=== PATIENT | male | born 1990 | race African-American/Black ===

== ENCOUNTER 2020-02-27 10:22 | Inpatient (IN) | payer SELFPAY ==
--- OUTSIDE RECORDS SUMMARY | 2020-02-27 10:26 | XMS ---
:1990 Author Organization [facility] Care Team Providers Name Role Phone YURI LYMAN MD, MD Unavailable Unavailable Kj Albright MD Unavailable Unavailable Kj Albright MD Unavailable Unavailable Kj Albright MD Unavailable Unavailable Kj Albright MD Unavailable Unavailable Kj Albright MD Unavailable Unavailable U , PROVIDER S MD Unavailable Unavailable Re-disclosure Warning The records that you are about to access may contain information from federally- assisted alcohol or drug abuse programs. If such information is present, then the following federally mandated warning applies: This information has been disclosed to you from records protected by federal confidentiality rules (42 CFR part 2). The federal rules prohibit you from making any further disclosure of this information unless further disclosure is expressly permitted by the written consent of the person to whom it pertains or as otherwise permitted by 42 CFR part 2. A general authorization for the release of medical or other information is NOT sufficient for this purpose. The Federal rules restrict any use of the information to criminally investigate or prosecute any alcohol or drug abuse patient.The records that you are about to access may contain highly sensitive health information, the redisclosure of which is protected by Article 27-F of the [facility] Public Health law. If you continue you may haveaccess to information: Regarding HIV / AIDS; Provided by facilities licensed or operated by the [facility] Office of Mental Health; or Provided by the [facility] Office for People With Developmental Disabilities. If such information is present, then the following [facility] mandated warning applies: This information has been disclosed to you from confidential records which are protected by state law. State law prohibits you from making any further disclosure of this information without the specific written consent of the person to whom it pertains, or as otherwise permitted by law. Any unauthorized further disclosure in violation of state law may result in a fine or half-way sentence or both. A general authorization for the release of medical or other information is NOT sufficient authorization for further disclosure. Allergies and Adverse Reactions Type Description Substance Reaction Status Data Source(s ) Drug allergy No Known Allergies No Known Allergies [facility] Encounters Encounter Providers Location Date Indications Data Source(s ) Emergency Attender: YURI 02/26/2020 DETOX [facility]ER GALLEGOS 07:03:00 AM EDT [facility] - 02/26/2020 08:25:00 AM EDT DETOX Patient discharged. P Attender: Kj Albright 02/25/2020 05:02:[address] [facility] MDAttender: BERTRAND Castillo MD EDT - 02/25/2020 09:3 0:00 [facility] PM EDT DETOX Patient discharged. Insurance Providers Payer name Policy type Policy ID Covered Covered green party's Policy P devyn / Coverage green party ID relationship to Mart Inf ormation type mart SELF PAY SP INSURANCE [facility] [id number] [place] Problems, Conditions, and Diagnoses Code Display Name Description Problem Type Effective Data Sour ce(s) Dates F11.10 Opioid abuse, [facility]IOID ABUSE, [facility] EDT [facility]
--- NOTE | 2020-02-27 13:43 | BHS.RME ---
Substance Use & Tx History - Substance Use History Heroin Substance amount: 30 40 bags Frequency of use: Daily Substance route: Inhalation (ex: sniffing or snorting) Date of Last Use: 02/25/20 - Last Treatment Date of last treatment: 1st time Physical/Psych/Mental Status - Behavior General Behavior: Increased activity (restlessness, agitation) Eye Contact: Normal Other Behaviors: Mannerisms - Cooperativeness Cooperativeness: Cooperative - Thinking Thought Processes: Tight Thought content: Future oriented - Physical Health Problems Is patient presently having any pain?: Yes Does patient presently have any injuries (include location): No Does patient currently have a fever: No COWS - Scale Resting Pulse: 0= [place] 80 or Below Sweatin=Flushed/Facial Moisture Restless Observation: 3= Extraneous Movement Pupil Size: 1= Pupils >than Normal Bone or Joint Aches: 1= Mild Discomfort Runny Nose/ Eye Tearin= Runny Nose/Eyes GI Upset > 30mins: 2= Nausea/Diarrhea Tremor Observation: 2= Slight Tremor Visible Yawning Observation: 1= 1-2x During Session Anxiety or Irritability: 1=Feels Anxious/Irritable Goose Flesh Skin: 3=Piloerection COWS Score: 18
--- NOTE | 2020-02-27 14:01 | HP ---
COWS - Scale Resting Pulse: 0= [place] 80 or Below Sweatin=Flushed/Facial Moisture Restless Observation: 3= Extraneous Movement Pupil Size: 1= Pupils >than Normal Bone or Joint Aches: 1= Mild Discomfort Runny Nose/ Eye Tearin= Runny Nose/Eyes GI Upset > 30mins: 2= Nausea/Diarrhea Tremor Observation: 2= Slight Tremor Visible Yawning Observation: 1= 1-2x During Session Anxiety or Irritability: 1=Feels Anxious/Irritable Goose Flesh Skin: 3=Piloerection COWS Score: 18 CIWA Score - Admission Criteria OASAS Guidelines: Admission for Medically Managed Detox: Requires at least one of the followin. CIWA greater than 12 2. Seizures within the past 24 hours 3. Delirium tremens within the past 24 hours 4. Hallucinations within the past 24 hours 5. Acute intervention needed for co occurring medical disorder 6. Acute intervention needed for co occurring psychiatric disorder 7. Severe withdrawal that cannot be handled at a lower level of care (continued vomiting, continued diarrhea, abnormal vital signs) requiring intravenous medication and/or fluids 8. Admission [facility] Chief Complaint: I am sick Allergies/Adverse Reactions: Allergies Allergy/AdvReac Type Severity Reaction Status Date / Time No Known Allergies Allergy Verified 02/27/20 14:17 History of Present Illness: 29 years old man with heroin use presents for detox. He reports 30 - 40 bag use, has not used since . He reports going to [facility] yesterday but he was not admitted due to lack of beds, he was given allergy medicine for his runny nose. He denies h/o overdose Exam Limitations: No Limitations - Ebola screening Have you traveled outside of the country in the last 21 days: No Have you had contact with anyone from an Ebola affected area: No Have you been sick,other than usual withdrawal symptoms: No Do you have a fever: No - Review of Systems Constitutional: Chills, Loss of Appetite, Changes in sleep EENT: reports: Blurred Vision, Nose Congestion Respiratory: reports: No Symptoms reported Cardiac: reports: No Symptoms Reported GI: reports: Diarrhea, Nausea, Poor Appetite, Poor Fluid Intake, Vomiting, Abdominal cramping : reports: No Symptoms Reported Musculoskeletal: reports: Back Pain, Muscle Pain, Muscle Weakness Integumentary: reports: Flushing, Sweating Neuro: reports: Numbness, Tremors Endocrine: reports: No Symptoms Reported Hematology: reports: No Symptoms Reported Psychiatric: reports: No Sypmtoms Reported Other Systems: Reviewed and Negative Patient History - Patient Medical History Hx Anemia: No Hx Asthma: Yes Hx Chronic Obstructive Pulmonary Disease (COPD): No Hx Cancer: No Hx Cardiac Disorders: No Hx Congestive Heart Failure: No Hx Hypertension: No Hx Hypercholesterolemia: No Hx Pacemaker: No HX Cerebrovascular Accident: No Hx Seizures: No Hx Dementia: No Hx Diabetes: No Hx Gastrointestinal Disorders: No Hx Liver Disease: No Hx Genitourinary Disorders: No Hx Sexually Transmitted Disorders: No Hx Renal Disease (ESRD): No Hx Thyroid Disease: No Hx Human Immunodeficiency Virus (HIV): No Hx Hepatitis C: No Hx Depression: No Hx Suicide Attempt: No Hx Bipolar Disorder: No Hx Schizophrenia: No - Patient Surgical History Past Surgical History: Yes Hx Orthopedic Surgery: Yes (left hip arthroscopy x 2) Hx Hysterectomy: No Anesthesia Reaction: No - PPD History Previous Implant?: Yes Documented Results: Negative w/o proof Implanted On Prior R Admission?: No PPD to be Administered?: Yes - Smoking Cessation Smoking history: Current every day smoker Have you smoked in the past 12 months: Yes Aproximately how many cigarettes per day: 20 Hx Chewing Tobacco Use: No Initiated information on smoking cessation: Yes 'Breaking Loose' booklet given: 02/27/20 - Substance & Tx. History Hx Alcohol Use: No Hx Substance Use: Yes Substance Use Type: Heroin Hx Substance Use Treatment: No - Substances abused Heroin Substance route: Inhalation Frequency: Daily Amount used: 30-40 Age of first use: 24 Date of last use: 02/25/20 Admission Physical Exam [facility] - Physical General Appearance: Yes: Mild Distress, Tremorous, Sweating, Anxious HEENTM: Yes: Hearing grossly Normal, Normocephalic, Normal Voice, Pharynx Normal Respiratory: Yes: Chest Non-Tender, Lungs Clear, Normal Breath Sounds, No Respiratory Distress, No Accessory Muscle Use Neck: Yes: No masses,lesions,Nodules, Supple Breast: Yes: Breast Exam Deferred Cardiology: Yes: Regular Rhythm, Regular Rate, S1, S2 Abdominal: Yes: Normal Bowel Sounds, Non Tender, Soft Genitourinary: Yes: Within Normal Limits Back: Yes: Normal Inspection Musculoskeletal: Yes: full range of Motion, Gait Steady, Pelvis Stable, Muscle weakness Extremities: Yes: Tremors Neurological: Yes: glue maker II-XII NML intact, Fully Oriented, Alert, Normal Mood/Affect, Normal Response Integumentary: Yes: Normal Color, Clammy Lymphatic: Yes: Within Normal Limits - Diagnostic (1) Opioid dependence with withdrawal Current Visit: Yes Status: Acute (2) Asthma Current Visit: Yes Status: Acute Qualifiers: Asthma severity: mild Asthma persistence: intermittent Cleared for Admission [facility] - Detox or Rehab [facility] Level of Care: Medically Managed Detox Regimen/Protocol: Methadone Claeared for Rehab Admission: No Breathalyzer - Breathalyzer Breathalyzer: 0 Urine Drug Screen - Test Device Lot number: [id number] Expiration date: 09/15/21 - Control Is test valid?: Yes - Results Drug screen NEGATIVE: No Urine drug screen results: FEN-Fentanyl, MOP-Opiates Inpatient Rehab Admission - Rehab Decision to Admit Inpatient rehab admission?: No
--- OUTSIDE RECORDS SUMMARY | 2020-02-27 14:15 | XMS ---
:1990 Author Organization [facility] Care Team Providers Name Role Phone YURI [...] is protected by Article 27-F of the [facility] Public Health law. If you continue you may haveaccess to information: Regarding HIV / AIDS; Provided by facilities licensed or operated by the [facility] Office of Mental Health; or Provided by the [facility] Office for People With Developmental Disabilities. If such information is present, then the following [facility] mandated warning applies: This information has been [...] law may result in a fine or alf sentence or both. A general authorization for the release of medical or other information is NOT sufficient authorization for further disclosure. Allergies and Adverse Reactions Type Description Substance Reaction Status Data Source(s ) Drug allergy No Known Allergies No Known Allergies [facility] Encounters Encounter Providers Location Date Indications Data Source(s ) Emergency Attender: YURI 02/26/2020 DETOX [facility]ALLEGOS 07:03:00 AM EDT [facility] - 02/26/2020 08:25:00 AM EDT DETOX Patient discharged. P Attender: Kj Albright 02/25/2020 05:02:00 PM DETOX [facility] MDAttender: BERTRAND Castillo MD EDT - 02/25/2020 09:3 0:00 [facility] PM EDT DETOX Patient discharged. Insurance Providers Payer name Policy type Policy ID Covered Covered libertarian's Policy P devyn / Coverage libertarian ID relationship to [employer] Inf ormation type mart SELF PAY SP INSURANCE [facility] [id number] [place] Problems, Conditions, and Diagnoses Code Display Name Description Problem Type Effective Data Sour ce(s) Dates F11.10 Opioid abuse, OPIOID ABUSE, Diagnosis [facility] UNCOMPLICATED 05:02:00 PM Regiona EDT [facility]
[2020-02-27] MEDS ORDERED: NICOTINE POLACRILEX 2 MG GUM BUC PRN (14:19)
[2020-02-27] MEDS ORDERED: MENTHOL/PHENOL 1 EACH UD MM PRN (14:19)
[2020-02-27] MEDS ORDERED: MAGNESIUM CITRATE 300 ML BOTTLE PO PRN (14:19)
[2020-02-27] MEDS ORDERED: NALOXONE HCL 0.4 MG/ML VIAL IM PRN (14:19)
[2020-02-27] MEDS ORDERED: MAGNESIUM HYDROX 2400MG/30ML ORAL SUSPENSION 30 ML CUP PO PRN (14:19)
[2020-02-27] MEDS ORDERED: BISMUTH SUBSALICYLATE 524 MG/30 ML UD PO PRN (14:19)
[2020-02-27] MEDS ORDERED: IBUPROFEN 400 MG TABLET (FP) PO PRN (14:19)
[2020-02-27] MEDS ORDERED: MAG HYDROX/AL HYDROX/SIMETH 30 ML UNIT-DOSE CUP PO PRN (14:19)
[2020-02-27] MEDS ORDERED: ACETAMINOPHEN 325 MG TABLET (FP) PO PRN ×2 (14:19)
[2020-02-27] MEDS ORDERED: METHOCARBAMOL 500 MG TABLET PO PRN (14:19)
[2020-02-27] MEDS ORDERED: METHADONE HCL 10 MG TABLET (FOR DETOX USE ONLY) PO ONE (14:19)
[2020-02-27] MEDS: NICOTINE 14 MG/24 HOURS TOPICAL PATCH TD SCH (15:43)
[2020-02-27] MEDS: cloNIDine HCL 0.1 MG TABLET PO PRN (22:46)
[2020-02-27] MEDS: MELATONIN 5 MG TABLETS PO SCH (22:46)
[2020-02-27] MEDS: THIAMINE HCL 100 MG TABLET (FP) PO SCH (22:46)
[2020-02-28] MEDS ORDERED: METHADONE HCL 5 MG TABLET (FOR DETOX USE ONLY) ONE (08:39)
[2020-02-28] MEDS ORDERED: METHADONE HCL 10 MG TABLET (FOR DETOX USE ONLY) ONE (08:39)
[2020-02-28] MEDS: P-EPHED 60MG/TRIPROLIDI 2.5MG TABLET PO PRN (09:19)
--- NOTE | 2020-02-28 09:34 | EKG ---
Test Reason : Blood Pressure : / mmHG Vent. Rate : 056 BPM Atrial Rate : 056 BPM P-R Int : 162 ms QRS Dur : 090 ms QT Int : 474 ms P-R-T Axes : 001 025 022 degrees QTc Int : 457 ms SINUS BRADYCARDIA WITH SINUS ARRHYTHMIA OTHERWISE NORMAL ECG NO PREVIOUS ECGS AVAILABLE Confirmed by Jagruti Loo ([id number]) on 02/28/2020 9:34:06 AM Referred By: Confirmed By:Jagruti Loo
[2020-02-28] MEDS ORDERED: METHADONE (DETOX) 20 MG, METHADONE (DETOX) 5 MG PO ONE (10:00)
[2020-02-28] MEDS: NICOTINE 14 MG/24 HOURS TOPICAL PATCH TD SCH (10:37)
[2020-02-28] MEDS: PRENATAL VITAMINS W/ FOLIC ACID TABLET (FP) PO SCH (10:39)
[2020-02-28 11:25] LABS: POTASSIUM 3.7 mmol/L (3.5-5.1)
[2020-02-28 11:29] LABS: ALBUMIN 3.8 g/dl (3.4-5.0); BILIRUBIN,TOTAL 0.4 mg/dL (0.2-1); BLOOD UREA NITROGEN 16.4 mg/dL (7-18); CALCIUM 9.1 mg/dL (8.5-10.1); CREATININE 0.7 mg/dL (0.55-1.3); TOT PROT 6.7 g/dl (6.4-8.2)
[2020-02-28 11:47] LABS: HEMATOCRIT 38.1 % (35.4-49); HEMOGLOBIN 12.6 GM/dL (11.7-16.9); MCH 26.8 pg (25.7-33.7); MCHC 33.1 g/dl (32.0-35.9); MEAN PLT VOLUME 10.4 fl (7.5-11.1); PLATELET COUNT 167 K/MM3 (134-434); RDW 14.4 % (11.9-15.9); WHITE BLOOD COUNT 3.9 K/mm3 (4.0-10.0)
--- NOTE | 2020-02-28 17:32 | PN ---
BHS COWS - Scale Resting Pulse: 0= [place] 80 or Below Sweatin= Chills/Flushing Restless Observation: 3= Extraneous Movement Pupil Size: 0= Normal to Room Light Bone or Joint Aches: 2= Severe Diffuse Aches Runny Nose/ Eye Tearin= Runny Nose/Eyes GI Upset > 30mins: 2= Nausea/Diarrhea Tremor Observation of Outstretched Hands: 0= None Yawning Observation: 0= None Anxiety or Irritability: 2=Irritable/Anxious Goose Flesh Skin: 0=Smooth Skin COWS Score: 12 BHS Progress Note (SOAP) Subjective: Chills, anxiety Objective: 02/28/20 17:31 Last Vital Signs Temp Pulse Resp BP Pulse Ox 97.1 F L 48 L 16 120/60 100 02/28/20 12:39 02/28/20 12:39 02/28/20 12:39 02/28/20 12:39 02/28/20 09:06 Bradycardia noted: asymptomatic, encouraged increase PO water and ambulation Laboratory Tests 02/27/20 02/28/20 02/28/20 19:51 07:30 07:30 WBC 3.9 L RBC 4.70 Hgb 12.6 Hct 38.1 MCV 81.0 MCH 26.8 MCHC 33.1 RDW 14.4 Plt Count 167 MPV 10.4 Sodium Potassium Chloride Carbon Dioxide Anion Gap BUN Creatinine Est GFR (CKD-EPI)AfAm Est GFR (CKD-EPI)NonAf Random Glucose Calcium Total Bilirubin AST ALT Alkaline Phosphatase Total Protein Albumin Syphilis Serology Non-reactive COVID-19 (YAMILEX) Not detected 02/28/20 07:30 WBC RBC Hgb Hct MCV MCH MCHC RDW Plt Count MPV Sodium 143 Potassium 3.7 Chloride 110 H Carbon Dioxide 29 Anion Gap 4 L BUN 16.4 Creatinine 0.7 Est GFR (CKD-EPI)AfAm 148.85 Est GFR (CKD-EPI)NonAf 128.43 Random Glucose 96 Calcium 9.1 Total Bilirubin 0.4 AST 12 L ALT 17 Alkaline Phosphatase 58 Total Protein 6.7 Albumin 3.8 Syphilis Serology COVID-19 (YAMILEX) Labs reviewed Assessment: 02/28/20 17:32 Withdrawal sxs Plan: Continue detox Encourage PO water intake
[2020-02-28] MEDS: MELATONIN 5 MG TABLETS PO SCH (22:28)
[2020-02-28] MEDS: THIAMINE HCL 100 MG TABLET (FP) PO SCH (22:28)
[2020-02-28] MEDS: cloNIDine HCL 0.1 MG TABLET PO PRN (22:29)
[2020-02-29] MEDS ORDERED: METHADONE HCL 10 MG TABLET (FOR DETOX USE ONLY) PO ONE (10:00)
[2020-02-29] MEDS: PRENATAL VITAMINS W/ FOLIC ACID TABLET (FP) PO SCH (10:14)
[2020-02-29] MEDS: NICOTINE 14 MG/24 HOURS TOPICAL PATCH TD SCH (10:14)
[2020-02-29] MEDS ORDERED: hydrOXYzine PAMOATE 25 MG CAPSULE (FP) PO PRN (13:27)
--- NOTE | 2020-02-29 13:29 | PN ---
BHS COWS - Scale Resting Pulse: 0= [place] 80 or Below Sweatin= Chills/Flushing Restless Observation: 1= Difficult to Sit Still Pupil Size: 0= Normal to Room Light Bone or Joint Aches: 1= Mild Discomfort Runny Nose/ Eye Tearin= Runny Nose/Eyes GI Upset > 30mins: 0= None Tremor Observation of Outstretched Hands: 1= Tremor [place], Not Seen Yawning Observation: 2= >3x During Session Anxiety or Irritability: 2=Irritable/Anxious Goose Flesh Skin: 0=Smooth Skin COWS Score: 10 BHS Progress Note (SOAP) Subjective: restless legs sweats shakes agitation anxiety body aches interrupted sleep Objective: 02/29/20 13:29 Vital Signs Temperature 98.2 F 02/29/20 12:27 Pulse Rate 55 L 02/29/20 12:27 Respiratory Rate 16 02/29/20 12:27 Blood Pressure 122/71 02/29/20 12:27 O2 Sat by Pulse Oximetry (%) 98 02/29/20 12:27 Laboratory Tests 02/27/20 02/28/20 02/28/20 19:51 07:30 07:30 WBC 3.9 L RBC 4.70 Hgb 12.6 Hct 38.1 MCV 81.0 MCH 26.8 MCHC 33.1 RDW 14.4 Plt Count 167 MPV 10.4 Sodium Potassium Chloride Carbon Dioxide Anion Gap BUN Creatinine Est GFR (CKD-EPI)AfAm Est GFR (CKD-EPI)NonAf Random Glucose Calcium Total Bilirubin AST ALT Alkaline Phosphatase Total Protein Albumin Syphilis Serology Non-reactive COVID-19 (YAMILEX) Not detected 02/28/20 07:30 WBC RBC Hgb Hct MCV MCH MCHC RDW Plt Count MPV Sodium 143 Potassium 3.7 Chloride 110 H Carbon Dioxide 29 Anion Gap 4 L BUN 16.4 Creatinine 0.7 Est GFR (CKD-EPI)AfAm 148.85 Est GFR (CKD-EPI)NonAf 128.43 Random Glucose 96 Calcium 9.1 Total Bilirubin 0.4 AST 12 L ALT 17 Alkaline Phosphatase 58 Total Protein 6.7 Albumin 3.8 Syphilis Serology COVID-19 (YAMILEX) labs noted aaox3 ambulating no acute distress Assessment: 02/29/20 13:29 withdrawals Plan: continue detox increase fluids valium prn visitril prn
[2020-02-29] MEDS: diazePAM 5 MG TABLET PO PRN ×2 (15:34→22:07)
[2020-02-29] MEDS: P-EPHED 60MG/TRIPROLIDI 2.5MG TABLET PO PRN (22:07)
[2020-02-29] MEDS: THIAMINE HCL 100 MG TABLET (FP) PO SCH (22:07)
[2020-02-29] MEDS: MELATONIN 5 MG TABLETS PO SCH (22:08)
[2020-03-01] MEDS: diazePAM 5 MG TABLET PO PRN ×4 (07:05→22:53)
[2020-03-01] MEDS ORDERED: METHADONE HCL 5 MG TABLET (FOR DETOX USE ONLY) ONE (08:39)
[2020-03-01] MEDS ORDERED: METHADONE HCL 10 MG TABLET (FOR DETOX USE ONLY) ONE (08:39)
[2020-03-01] MEDS ORDERED: METHADONE (DETOX) 10 MG, METHADONE (DETOX) 5 MG PO ONE (10:00)
[2020-03-01] MEDS: NICOTINE 14 MG/24 HOURS TOPICAL PATCH TD SCH (10:22)
[2020-03-01] MEDS: PRENATAL VITAMINS W/ FOLIC ACID TABLET (FP) PO SCH (10:22)
--- NOTE | 2020-03-01 12:23 | PN ---
BHS COWS - Scale Resting Pulse: 0= [place] 80 or Below Sweatin= Chills/Flushing Restless Observation: 1= Difficult to Sit Still Pupil Size: 0= Normal to Room Light Bone or Joint Aches: 1= Mild Discomfort Runny Nose/ Eye Tearin= None GI Upset > 30mins: 0= None Tremor Observation of Outstretched Hands: 1= Tremor [place], Not Seen Yawning Observation: 1= 1-2x During Session Anxiety or Irritability: 1=Feels Anxious/Irritable Goose Flesh Skin: 0=Smooth Skin COWS Score: 6 BHS Progress Note (SOAP) Subjective: sweats chills Objective: 03/01/20 12:23 Vital Signs Temperature 97.6 F 03/01/20 08:33 Pulse Rate 54 L 03/01/20 08:33 Respiratory Rate 20 03/01/20 08:33 Blood Pressure 106/63 03/01/20 08:33 O2 Sat by Pulse Oximetry (%) 97 03/01/20 06:37 Laboratory Tests 02/27/20 02/28/20 02/28/20 19:51 07:30 07:30 WBC 3.9 L RBC 4.70 Hgb 12.6 Hct 38.1 MCV 81.0 MCH 26.8 MCHC 33.1 RDW 14.4 Plt Count 167 MPV 10.4 Sodium Potassium Chloride Carbon Dioxide Anion Gap BUN Creatinine Est GFR (CKD-EPI)AfAm Est GFR (CKD-EPI)NonAf Random Glucose Calcium Total Bilirubin AST ALT Alkaline Phosphatase Total Protein Albumin Syphilis Serology Non-reactive COVID-19 (YAMILEX) Not detected 02/28/20 07:30 WBC RBC Hgb Hct MCV MCH MCHC RDW Plt Count MPV Sodium 143 Potassium 3.7 Chloride 110 H Carbon Dioxide 29 Anion Gap 4 L BUN 16.4 Creatinine 0.7 Est GFR (CKD-EPI)AfAm 148.85 Est GFR (CKD-EPI)NonAf 128.43 Random Glucose 96 Calcium 9.1 Total Bilirubin 0.4 AST 12 L ALT 17 Alkaline Phosphatase 58 Total Protein 6.7 Albumin 3.8 Syphilis Serology COVID-19 (YAMILEX) labs noted aaox3 lying in bed no acute distress Assessment: 03/01/20 12:23 withdrawals Plan: continue detox
[2020-03-01] MEDS: THIAMINE HCL 100 MG TABLET (FP) PO SCH (22:53)
[2020-03-01] MEDS: MELATONIN 5 MG TABLETS PO SCH (22:53)
[2020-03-02] MEDS ORDERED: METHADONE HCL 10 MG TABLET (FOR DETOX USE ONLY) PO ONE (10:00)
[2020-03-02] MEDS: NICOTINE 14 MG/24 HOURS TOPICAL PATCH TD SCH (10:44)
[2020-03-02] MEDS: diazePAM 5 MG TABLET PO PRN ×3 (10:47→22:58)
[2020-03-02] MEDS: PRENATAL VITAMINS W/ FOLIC ACID TABLET (FP) PO SCH (10:47)
--- NOTE | 2020-03-02 13:26 | PN ---
BHS COWS - Scale Resting Pulse: 0= [place] 80 or Below Sweatin= Chills/Flushing Restless Observation: 0= Sits Still Pupil Size: 0= Normal to Room Light Bone or Joint Aches: 1= Mild Discomfort Runny Nose/ Eye Tearin= None GI Upset > 30mins: 0= None Tremor Observation of Outstretched Hands: 0= None Yawning Observation: 1= 1-2x During Session Anxiety or Irritability: 1=Feels Anxious/Irritable Goose Flesh Skin: 0=Smooth Skin COWS Score: 4 BHS Progress Note (SOAP) Subjective: sweats anxiety Objective: 03/02/20 13:25 Vital Signs Temperature 97.6 F 03/02/20 08:43 Pulse Rate 52 L 03/02/20 08:43 Respiratory Rate 16 03/02/20 08:43 Blood Pressure 118/61 03/02/20 08:43 O2 Sat by Pulse Oximetry (%) 100 03/02/20 08:43 aaox3 ambulating no acute distress Assessment: 03/02/20 13:25 withdrawals Plan: continue detox d/c in am
[2020-03-02] MEDS: MELATONIN 5 MG TABLETS PO SCH (22:56)
[2020-03-02] MEDS: THIAMINE HCL 100 MG TABLET (FP) PO SCH (22:56)
[2020-03-03] MEDS ORDERED: METHADONE HCL 5 MG TABLET (FOR DETOX USE ONLY) PO ONE (06:00)
[2020-03-03 08:02] VITALS: BP 112/69; PULSE 47; TEMP 96.4
[2020-03-03] MEDS: diazePAM 5 MG TABLET PO PRN (08:59)
[2020-03-03] MEDS: PRENATAL VITAMINS W/ FOLIC ACID TABLET (FP) PO SCH (09:01)
--- NOTE | 2020-03-03 14:39 | DS ---
[facility] Detox Discharge Summary Admission Date: 02/27/20 Discharge Date: 03/03/20 - History Present History: Opioid Dependence - Physical Exam Results Vital Signs: Vital Signs Temperature 96.4 F L 03/03/20 05:10 Pulse Rate 47 L 03/03/20 05:10 Respiratory Rate 16 03/03/20 05:10 Blood Pressure 112/69 03/03/20 05:10 O2 Sat by Pulse Oximetry (%) 96 03/03/20 05:10 Pertinent Admission Physical Exam Findings: Vital Signs Temperature 96.4 F L 03/03/20 05:10 Pulse Rate 47 L 03/03/20 05:10 Respiratory Rate 16 03/03/20 05:10 Blood Pressure 112/69 03/03/20 05:10 O2 Sat by Pulse Oximetry (%) 96 03/03/20 05:10 Laboratory Tests 02/27/20 02/28/20 02/28/20 19:51 07:30 07:30 WBC 3.9 L RBC 4.70 Hgb 12.6 Hct 38.1 MCV 81.0 MCH 26.8 MCHC 33.1 RDW 14.4 Plt Count 167 MPV 10.4 Sodium Potassium Chloride Carbon Dioxide Anion Gap BUN Creatinine Est GFR (CKD-EPI)AfAm Est GFR (CKD-EPI)NonAf Random Glucose Calcium Total Bilirubin AST ALT Alkaline Phosphatase Total Protein Albumin Syphilis Serology Non-reactive COVID-19 (YAMILEX) Not detected 02/28/20 07:30 WBC RBC Hgb Hct MCV MCH MCHC RDW Plt Count MPV Sodium 143 Potassium 3.7 Chloride 110 H Carbon Dioxide 29 Anion Gap 4 L BUN 16.4 Creatinine 0.7 Est GFR (CKD-EPI)AfAm 148.85 Est GFR (CKD-EPI)NonAf 128.43 Random Glucose 96 Calcium 9.1 Total Bilirubin 0.4 AST 12 L ALT 17 Alkaline Phosphatase 58 Total Protein 6.7 Albumin 3.8 Syphilis Serology COVID-19 (YAMILEX) aaox3 ambulating no acute distress lungs CTA - Treatment Hospital Course: Detox Protocol Followed, Detoxed Safely, Responded well, Discharged Condition Good, Rehab Referral Accepted - Medication Discharge Medications: Ambulatory Orders NK [No Known Home Medication] 02/27/20 - Diagnosis (1) Asthma Status: Acute Qualifiers: Asthma severity: mild Asthma persistence: intermittent (2) Opioid dependence with withdrawal Status: Chronic - AMA Did Patient Leave Against Medical Advice: No
== END 2020-03-03 10:24 | disposition home or self-care (01) | DRG 773 ==
LOC: YASAS 10:22 → Y6N 14:13
PROVIDERS: ADMIT Allergy & Immunology; ATTEND Allergy & Immunology
PROC: HZ2ZZZZ Detoxification Services for Substance Abuse Treatment (ICD-10-PCS; principal; 2020-02-27)
DX: F11.23 Opioid dependence with withdrawal (principal); F17.210 Nicotine dependence, cigarettes, uncomplicated; J45.20 Mild intermittent asthma, uncomplicated; R00.1 Bradycardia, unspecified; Z98.890 Other specified postprocedural states
CPT/HCPCS: 36415; 80053; 85027; 86780; 93005; 93010; J0735; U0003